=== PATIENT | female | born 1975 | race Caucasian/White ===

== ENCOUNTER 2017-11-06 09:42 | Day surgery (SDC) | payer BC ==
[2017-11-05 15:25] VITALS: BMI 26.0
[2017-11-06] MEDS ORDERED: ONDANSETRON 4 MG/2 ML VIAL IVPUSH PRN ×2 (11:00→11:56)
[2017-11-06] MEDS ORDERED: oxyCODONE HCL 5 MG TABLET PO PRN ×2 (11:00→11:56)
[2017-11-06] MEDS ORDERED: LACTATED RINGERS SOLUTION 1,000 ML IV SCH (11:00)
[2017-11-06] MEDS ORDERED: PROMETHAZINE HCL 25 MG/1 ML VIAL IVPB PRN (11:00)
--- NOTE | 2017-11-06 11:08 | HP ---
Past Medical History - Primary Care Physician PCP:: Kodi Bradley - Admission Chief Complaint: menorrhagia, anemia, EM polyp History of Present Illness: 42 yo f , c/o of heavy vaginal bleeding , sono showed EM polyp admitted for hysteroscopy D&C polypectomy, RBA discussed History Source: Patient Limitations to Obtaining History: No Limitations - Past Medical History Gastrointestinal: Yes: GERD ...: 0 ...Para: 0 - Past Surgical History Hx Myomectomy: No Hx Transabdominal Cerclage: No - Smoking History Smoking history: Never smoked Have you smoked in the past 12 months: No - Alcohol/Substance Use Hx Alcohol Use: No - Social History Usual Living Arrangement: Yes: With Spouse History of Recent Travel: No Home Medications - Allergies Allergies/Adverse Reactions: Allergies Allergy/AdvReac Type Severity Reaction Status Date / Time No Known Drug Allergies Allergy Verified 11/06/17 10:19 - Home Medications Home Medications: Ambulatory Orders Iron 18 mg PO TID 11/05/17 Naltrexone HCl/Bupropion HCl [Contrave ER 8-90 mg Tablet] 2 each PO BID Omeprazole Magnesium [Prilosec Otc] 20 mg PO DAILY 11/05/17 Vit/Iron Fum/Folic AC [ Tablet] 1 each PO DAILY 11/05/17 Review of Systems - Review of Systems Constitutional: reports: No Symptoms Eyes: reports: No Symptoms HENT: reports: No Symptoms Neck: reports: No Symptoms Cardiovascular: reports: No Symptoms Respiratory: reports: No Symptoms Gastrointestinal: reports: No Symptoms Genitourinary: reports: No Symptoms Breasts: reports: No Symptoms Reported Musculoskeletal: reports: No Symptoms Integumentary: reports: No Symptoms Neurological: reports: No Symptoms Endocrine: reports: No Symptoms Hematology/Lymphatic: reports: No Symptoms Psychiatric: reports: No Symptoms Physical Exam-FINANCIAL PLANNING ANALYST Vital Signs: Vital Signs Temperature 98.6 F 11/06/17 10:17 Pulse Rate 80 11/06/17 10:17 Respiratory Rate 20 11/06/17 10:17 Blood Pressure 117/58 11/06/17 10:17 O2 Sat by Pulse Oximetry (%) 98 11/06/17 10:16 Constitutional: Yes: Well Nourished, No Distress, Calm Eyes: Yes: WNL, Conjunctiva Clear, EOM Intact HENT: Yes: WNL, Atraumatic, Normocephalic Neck: Yes: WNL, Supple, Trachea Midline Cardiovascular: Yes: WNL, Regular Rate and Rhythm Respiratory: Yes: WNL, Regular, CTA Bilaterally Gastrointestinal: Yes: WNL ...Rectal Exam: Yes: WNL Renal/: Yes: WNL Cervix: Yes: Normal Uterus: Yes: Normal Adnexa: Not Palpable: Left, Right Breast(s): Yes: WNL Musculoskeletal: Yes: WNL Extremities: Yes: WNL Edema: No Integumentary: Yes: WNL Neurological: Yes: WNL, Alert, Oriented ...Motor Strength: WNL Psychiatric: Yes: WNL, Alert, Oriented Problem List - Problem (1) Menorrhagia with irregular cycle Code(s): N92.1 - EXCESSIVE AND FREQUENT MENSTRUATION WITH IRREGULAR CYCLE (2) Endometrial polyp Code(s): N84.0 - POLYP OF CORPUS UTERI Assessment/Plan hysteroscopy, D&C, polypectomy
[2017-11-06] MEDS ORDERED: MIDAZOLAM HCL 2 MG/2 ML SINGLE DOSE VIAL ONE (11:09)
[2017-11-06] MEDS ORDERED: PROPOFOL 20 ML ONE (11:12)
[2017-11-06] MEDS ORDERED: IBUPROFEN 600 MG TABLET (FP) PO PRN (11:56)
[2017-11-06] MEDS ORDERED: IBUPROFEN 800 MG/8 ML IJ IVPB PRN (11:56)
[2017-11-06] MEDS ORDERED: ELECTROLYTE-148 SOLN 1,000 ML IV SCH (12:00)
--- NOTE | 2017-11-06 13:17 | OP ---
DATE OF OPERATION: 11/06/2017 PREOPERATIVE DIAGNOSIS: Endometrial polyp, menometrorrhagia, and anemia. POSTOPERATIVE DIAGNOSIS: Endometrial polyp and intrauterine adhesions. SURGEON: Kodi Bradley MD ANESTHESIA: General. ANESTHESIOLOGIST: Rhonda Mcguire M.D. ESTIMATED BLOOD LOSS: 25 mL. DESCRIPTION OF PROCEDURE: The patient was taken to the operating room and had adequate general anesthesia. Examination under anesthesia revealed external genitalia to be normal. Vagina was normal. Cervix was clean, no gross lesions. The uterus was slightly prominent anteriorly. The adnexa had no masses palpable. With a weighted speculum in the vagina, the anterior lip of the cervix was grasped with a single-tooth tenaculum. The cervix was slightly dilated with Hegar dilators, and then hysteroscope was introduced. Visualization of endocervical canal appeared to be normal. There was a 1 to 2-cm polyp in the lower uterine segment. There were multiple intrauterine adhesions, making it difficult to visualize both cornual regions. Also, it was difficult to insert the hysteroscope because of the adhesions. Some of the lower uterine segment area adhesions were lysed and the endometrial polyp was removed. Because of the dense adhesions, we were not able to introduce the hysteroscope further. Therefore, the procedure was terminated. The patient tolerated the procedure well, and left the OR in good condition. KODI BRADLEY M.D. [id number]
[2017-11-06 13:22] VITALS: TEMP 98.7
[2017-11-06 14:08] VITALS: BP 106/67; PULSE 90
--- NOTE | 2017-11-07 11:36 | PATH ---
Surgical Pathology Report Patient Name: SIGIFREDO RAYMOND [facility]. Rec. #: [id number] /Age/Gender: 1975 (Age: 42) / F Account: [id number] Location: [facility] Taken: 11/06/2017 Received: 11/06/2017 Reported: 11/07/2017 Physicians: Kodi Bradley M.D. Specimen(s) Received ENDOMETRIAL CURETTINGS Clinical History Endometrial polyp Final Diagnosis ENDOMETRIAL CURETTINGS, HYSTEROSCOPIC DILATION AND CURETTAGE: FRAGMENTS OF ENDOCERVICAL POLYP, LOWER UTERINE SEGMENT, AND BENIGN CERVICAL TISSUE. Electronically Signed Anastacia Joseph M.D. Gross Description Received in formalin labeled "endometrial curettings," is a 1.2 x 1.0 x 0.2 cm aggregate of mathias red soft tissue fragments. The formalin is filtered and the specimen is entirely submitted in one cassette. /11/06/2017 saudi11/06/2017
== END 2017-11-06 14:08 | disposition home or self-care (01) ==
LOC: JASU-SURG 09:42
PROVIDERS: ATTEND Obstetrics & Gynecology
PROC: 0UB98ZX Excision of Uterus, Via Natural or Artificial Opening Endoscopic, Diagnostic (ICD-10-PCS; principal; 2017-11-06 11:00)
PROC: 0UN98ZZ Release Uterus, Via Natural or Artificial Opening Endoscopic (ICD-10-PCS; 2017-11-06 11:00)
DX: N84.0 Polyp of corpus uteri (principal); D64.9 Anemia, unspecified; N85.6 Intrauterine synechiae
CPT/HCPCS: 84703; 88305-TC; 94760

== ENCOUNTER 2022-06-13 21:34 | Observation (INO) | payer BC, OTHER ==
[2022-06-13 21:43] VITALS: BMI 25.7
[2022-06-13] MEDS ORDERED: SODIUM CHLORIDE 0.9% 500 ML INFUS.BAG IV ONE (22:10)
[2022-06-13 23:19] LABS: BASO % 0.4 % (0-2.0); EOS % 0.3 % (0-4.5); HEMATOCRIT 25.2 % (32.4-45.2); LYMPH % 18.8 % (8-40); MCH 25.9 pg (25.7-33.7); MCHC 31.9 g/dl (32.0-36.0); MEAN CELL VOLUME 81.2 fl (80-96); MEAN PLT VOLUME 9.3 fl (7.5-11.1); MONO % 5.2 % (3.8-10.2); NEUT % 75.3 % (42.8-82.8); PLATELET COUNT 274 10^3/uL (134-434); RDW 17.6 % (11.6-15.6); WHITE BLOOD COUNT 9.9 K/mm3 (4.0-10.0)
[2022-06-13 23:29] LABS: INR 1.13 (0.83-1.09)
[2022-06-13 23:31] LABS: ACTIVATED PTT 27.2 SECONDS (25.2-36.5)
[2022-06-13 23:40] LABS: CALCIUM 8.2 mg/dL (8.5-10.1)
[2022-06-13 23:41] LABS: ALBUMIN 2.7 g/dl (3.4-5.0); MAGNESIUM 1.7 mg/dL (1.8-2.4)
[2022-06-13 23:44] LABS: CREATININE 0.5 mg/dL (0.55-1.3)
[2022-06-13 23:45] LABS: BILIRUBIN,TOTAL 0.2 mg/dL (0.2-1)
[2022-06-13 23:46] LABS: TOT PROT 5.2 g/dl (6.4-8.2)
[2022-06-13] MEDS ORDERED: PANTOPRAZOLE SODIUM 40 MG VIAL IVPUSH ONE (23:55)
[2022-06-13] MEDS ORDERED: MAGNESIUM SULF 50% (8.12 MEQ/2 ML-1 GM VIAL) IVPB ONE (23:55)
[2022-06-14] MEDS ORDERED: PANTOPRAZOLE SODIUM 40 MG VIAL ONE (00:51)
[2022-06-14] MEDS ORDERED: MAGNESIUM SULFATE IN WATER 2 GM/50 ML IVPB IVPB ONE (00:51)
[2022-06-14] MEDS ORDERED: PANTOPRAZOLE SODIUM 40 MG/100 ML BAG IVPB ONE (00:53)
[2022-06-14 03:14] VITALS: TEMP 97.9
[2022-06-14 03:45] LABS: BASO % 0.3 % (0-2.0); EOS % 0.6 % (0-4.5); HEMATOCRIT 19.6 % (32.4-45.2); LYMPH % 20.9 % (8-40); MCH 25.9 pg (25.7-33.7); MCHC 31.4 g/dl (32.0-36.0); MEAN CELL VOLUME 82.7 fl (80-96); MEAN PLT VOLUME 8.8 fl (7.5-11.1); NEUT % 72.2 % (42.8-82.8); PLATELET COUNT 210 10^3/uL (134-434); RBC 2.37 M/mm3 (3.60-5.2); RDW 17.6 % (11.6-15.6); WHITE BLOOD COUNT 7.9 K/mm3 (4.0-10.0)
[2022-06-14 03:47] LABS: HEMOGLOBIN 6.1 GM/dL (10.7-15.3)
[2022-06-14 06:12] VITALS: BP 102/66; PULSE 106; RESP 16
== END 2022-06-14 05:30 | disposition short-term general hospital (02) ==
LOC: JER 21:34 → JERBED 06-14 00:47
PROVIDERS: ADMIT Family Medicine; ATTEND Family Medicine
PROC: 3E033GC Introduction of Other Therapeutic Substance into Peripheral Vein, Percutaneous Approach (ICD-10-PCS; principal; 2022-06-14)
PROC: 3E0337Z Introduction of Electrolytic and Water Balance Substance into Peripheral Vein, Percutaneous Approach (ICD-10-PCS; 2022-06-14)
DX: O21.9 Vomiting of pregnancy, unspecified (principal); D50.9 Iron deficiency anemia, unspecified; K44.9 Diaphragmatic hernia without obstruction or gangrene; K21.9 Gastro-esophageal reflux disease without esophagitis; Z3A.14 14 weeks gestation of pregnancy
CPT/HCPCS: 36415; 71045-TC-FY; 76801-TC; 80053; 82272; 83605; 83690; 83735; 84484; 85025; 85610; 85730; 86922; 93005; 93010; 96374; 96375; 99285-25; C9803-CS; G0378; U0003; U0005

== ENCOUNTER 2022-11-28 18:00 | Inpatient (IN) | payer BC ==
[2022-11-28 18:49] VITALS: BMI 32.0
[2022-11-28] MEDS ORDERED: AMPICILLIN - 2 GM in SODIUM CHLORIDE 100 ML IVPB ONE (18:50)
[2022-11-28] MEDS ORDERED: CITRIC ACID/SODIUM CITRATE 30 ML UNIT-DOSE CUP PO ONE (18:58)
[2022-11-28] MEDS ORDERED: ELECTROLYTE-148 SOLN 1,000 ML IV SCH (19:00)
[2022-11-28] MEDS ORDERED: AMPICILLIN SODIUM 2 GM VIAL ONE (19:34)
[2022-11-28 19:43] LABS: BASO % 0.7 % (0-2.0); EOS % 0.5 % (0-4.5); HEMATOCRIT 28.4 % (32.4-45.2); HEMOGLOBIN 8.5 GM/dL (10.7-15.3); LYMPH % 13.7 % (8-40); MCH 21.1 pg (25.7-33.7); MCHC 29.8 g/dl (32.0-36.0); MEAN CELL VOLUME 70.8 fl (80-96); MEAN PLT VOLUME 8.2 fl (7.5-11.1); MONO % 5.2 % (3.8-10.2); NEUT % 79.9 % (42.8-82.8); PLATELET COUNT 248 10^3/uL (134-434); RBC 4.02 M/mm3 (3.60-5.2); RDW 19.6 % (11.6-15.6); WHITE BLOOD COUNT 11.2 K/mm3 (4.0-10.0)
[2022-11-28 19:50] LABS: INR 0.99 (0.83-1.09); PROTHROMBIN TIME (PATIENT) 11.5 SEC (9.7-13.0)
[2022-11-28 19:52] LABS: ACTIVATED PTT 28.6 SECONDS (25.2-36.5)
[2022-11-28 20:04] LABS: CALCIUM 8.8 mg/dL (8.5-10.1)
[2022-11-28] MEDS ORDERED: SIMETHICONE 80 MG TAB.CHEW (FP) PO PRN (20:04)
[2022-11-28] MEDS ORDERED: METHYLERGONOVINE MALEATE 0.2 MG/1 ML AMP IM PRN (20:04)
[2022-11-28 20:05] LABS: BLOOD UREA NITROGEN 15.9 mg/dL (7-18)
[2022-11-28 20:08] LABS: CREATININE 0.5 mg/dL (0.55-1.3)
[2022-11-28 20:13] LABS: ANISOCYTOSIS 2+; MACROCYTOSIS 0
[2022-11-28] MEDS ORDERED: morphine SULFATE/PF 1 MG/2 ML (2cc Syringe - QUVA) ONE (20:26)
[2022-11-28] MEDS ORDERED: FENTANYL CITRATE/PF 50 MCG/ML VIAL ONE (20:26)
[2022-11-28] MEDS: ACETAMINOPHEN 1000 MG/100 ML BAG IVPB SCH (22:08)
[2022-11-28] MEDS ORDERED: ACETAMINOPHEN INJECTION 100 ML IVPB ONE (22:09)
[2022-11-28] MEDS ORDERED: AMPICILLIN - 1 GM in SODIUM CHLORIDE 100 ML IVPB SCH (23:00)
[2022-11-28] MEDS: OXYTOCIN 20 UNITS in 0.9% NS 20 UNIT/1,000 ML INFUS.BAG IV SCH (23:01)
[2022-11-28] MEDS ORDERED: OXYTOCIN 20 UNITS in 0.9% NS 20 UNIT/1,000 ML INFUS.BAG IV ONE (23:04)
[2022-11-29] MEDS: IBUPROFEN 800 MG/8 ML IJ IVPB SCH ×2 (00:31→04:31)
[2022-11-29] MEDS: ACETAMINOPHEN 1000 MG/100 ML BAG IVPB SCH ×2 (01:18→08:30)
[2022-11-29 07:23] LABS: BASO % 0.4 % (0-2.0); EOS % 0.5 % (0-4.5); HEMATOCRIT 23.5 % (32.4-45.2); HEMOGLOBIN 7.2 GM/dL (10.7-15.3); LYMPH % 9.6 % (8-40); MCH 22.1 pg (25.7-33.7); MCHC 30.6 g/dl (32.0-36.0); MEAN CELL VOLUME 72.1 fl (80-96); MONO % 5.4 % (3.8-10.2); NEUT % 84.1 % (42.8-82.8); PLATELET COUNT 214 10^3/uL (134-434); RBC 3.25 M/mm3 (3.60-5.2); RDW 19.7 % (11.6-15.6); WHITE BLOOD COUNT 10.9 K/mm3 (4.0-10.0)
[2022-11-29] MEDS ORDERED: oxyCODONE HCL 5 MG TABLET PO PRN ×2 (08:04)
[2022-11-29] MEDS: OXYTOCIN 20 UNITS in 0.9% NS 20 UNIT/1,000 ML INFUS.BAG IV SCH (08:30)
[2022-11-29] MEDS: IBUPROFEN 600 MG TABLET (FP) PO SCH ×2 (12:26→12:38)
[2022-11-29] MEDS: ACETAMINOPHEN 325 MG TABLET (FP) PO SCH ×3 (12:27→23:32)
[2022-11-29] MEDS: FERROUS SO4 325 MG TABLET (FP) PO SCH ×2 (12:28→21:30)
[2022-11-29] MEDS: SUCRALFATE 1 GM TABLET (FP) PO SCH ×3 (14:53→21:30)
[2022-11-29] MEDS ORDERED: BISACODYL 10 MG SUPP.RECT RC PRN (20:04)
[2022-11-30] MEDS: ACETAMINOPHEN 325 MG TABLET (FP) PO SCH ×2 (04:59→11:44)
[2022-11-30] MEDS: LEVOTHYROXINE NA 25 MCG TABLET (FP) PO SCH (06:16)
[2022-11-30] MEDS: PANTOPRAZOLE 40 MG TABLET PO SCH (09:43)
[2022-11-30] MEDS: SUCRALFATE 1 GM TABLET (FP) PO SCH ×4 (09:43→21:55)
[2022-11-30] MEDS: FERROUS SO4 325 MG TABLET (FP) PO SCH ×2 (09:43→21:55)
[2022-11-30 10:27] VITALS: RESP 18
[2022-11-30] MEDS: ACETAMINOPHEN 500 MG TABLET (FP) PO SCH ×2 (12:47→20:21)
[2022-12-01] MEDS: ACETAMINOPHEN 500 MG TABLET (FP) PO SCH ×2 (04:45→11:58)
[2022-12-01] MEDS: LEVOTHYROXINE NA 25 MCG TABLET (FP) PO SCH (06:23)
[2022-12-01 08:07] LABS: BASO % 0.7 % (0-2.0); EOS % 1.8 % (0-4.5); HEMATOCRIT 26.8 % (32.4-45.2); HEMOGLOBIN 8.1 GM/dL (10.7-15.3); MCH 22.4 pg (25.7-33.7); MCHC 30.1 g/dl (32.0-36.0); MEAN CELL VOLUME 74.4 fl (80-96); MEAN PLT VOLUME 8.7 fl (7.5-11.1); MONO % 5.7 % (3.8-10.2); NEUT % 79.8 % (42.8-82.8); PLATELET COUNT 248 10^3/uL (134-434); RBC 3.61 M/mm3 (3.60-5.2); WHITE BLOOD COUNT 9.6 K/mm3 (4.0-10.0)
[2022-12-01 09:45] VITALS: BP 116/80; PULSE 97; TEMP 98.2
[2022-12-01] MEDS: SUCRALFATE 1 GM TABLET (FP) PO SCH (11:00)
[2022-12-01] MEDS: PANTOPRAZOLE 40 MG TABLET PO SCH (11:00)
[2022-12-01] MEDS: FERROUS SO4 325 MG TABLET (FP) PO SCH (11:00)
== END 2022-12-01 12:15 | disposition home or self-care (01) | DRG 788 ==
LOC: JLDR 18:00 → J3W 23:00
PROVIDERS: ADMIT Obstetrics & Gynecology; ATTEND Obstetrics & Gynecology
PROC: 10D00Z1 Extraction of Products of Conception, Low, Open Approach (ICD-10-PCS; principal; 2022-11-28)
DX: O41.03X0 Oligohydramnios, third trimester, not applicable or unspecified (principal); O99.824 Streptococcus B carrier state complicating childbirth; Z3A.37 37 weeks gestation of pregnancy; Z37.0 Single live birth
CPT/HCPCS: 36415; 80048; 85025; 85610; 85730; 86780; 86850; 86900; 86901; 88307-TC